=== PATIENT | male | born 1960 ===

== ENCOUNTER 2023-11-14 06:35 | Day surgery (SDC) | payer OTHER ==
[2023-11-12 08:38] LABS: HEMATOCRIT 38.9 % (39.0-48.0); HEMOGLOBIN 13.2 g/dL (13-16.00); MEAN CELL VOLUME 80.8 fL (80.0-100.00); MEAN CORPUSCULAR HEMOGLOBIN 27.5 pg (27.00-32.0); PLATELET COUNT 312 K/uL (150-450); RED BLOOD COUNT 4.81 M/uL (4.00-6.00); RED CELL DISTRIBUTION WIDTH 13.9 % (11.5-14.5)
[2023-11-12 08:39] LABS: URINE APPEARANCE Clear; URINE BILIRRUBIN Negative (NEGATIVE); URINE BLOOD Negative; URINE COLOR Yellow; URINE GLUCOSE Negative (NEGATIVE); URINE LEUKOCYTE Negative; URINE NITRATE Negative; URINE PROTEIN Negative (NEGATIVE); URINE UROBILINOGEN 0.2 E.U./dl
[2023-11-12 08:40] LABS: URINE WBC 2.6 uL (0.0-23.2)
[2023-11-12 08:44] LABS: URINE EPITHELIAL CELLS 0.1 uL (0.0-38.8); URINE RBC 1.1 uL (0.0-20.8)
[2023-11-12 09:06] LABS: CALCIUM 9.5 mg/dL (8.5-10.1); CREATININE SERUM 0.97 mg/dL (0.70-1.30); GFR 78.17; INR 1.02; POTASSIUM 5.03 mEq/L (3.5-5.1); PROTHROMBIN TIME 10.7 SECONDS (9.0-11.5)
[~2023-11-14 06:35] MED LIST: COZAAR50 MG PO; CRESTOR20 MG PO; [UNRECOGNIZED DRUG - OTHER]
[2023-11-14] MEDS ORDERED: PERCOCET 5-3251 EACH PO (11:38)
[2023-11-14] MEDS ORDERED: NEURONTIN300 MG PO (11:38)
[2023-11-14] MEDS ORDERED: COLACE100 MG PO (11:38)
== END 2023-11-14 18:20 | disposition home or self-care (01) ==
LOC: CIR.AMB 06:35
PROVIDERS: ATTEND Surgery
DX: K40.90 Unilateral inguinal hernia, without obstruction or gangrene, not specified as recurrent (principal); Z20.822 Contact with and (suspected) exposure to COVID-19
CPT/HCPCS: 49650; C1781